=== PATIENT | male | born 1975 | race Caucasian/White ===

== ENCOUNTER → 2024-10-09 12:06 | Outpatient (REF) | payer OTHER, SELFPAY | LOC: RAD 12:06 | PROVIDERS: ATTENDING PHYSICIAN General Practice | DX: G40.109 Localization-related (focal) (partial) symptomatic epilepsy and epileptic syndromes with simple partial seizures, not intractable, without status epilepticus (principal); Z79.899 Other long term (current) drug therapy | CPT/HCPCS: 77080 ==